=== PATIENT | male | born 1945 | race Caucasian/White ===

== ENCOUNTER 2022-09-28 11:40 | Observation (INO) | payer MEDICARE, OTHER ==
[~2022-09-28] VITALS: Ht 180.3 cm; Wt 82.0 kg
[2022-09-28] VITALS (14 sets, daily range): BP systolic 138–165; BP diastolic 63–77
--- NOTE | 2022-09-28 11:40 | NUR ---
PATIENT BROUGHT TO ROOM VIA EMS STRETCHER AND IN NAD. PROVIDER NOTIFIED OF PATIENT STATUS.
[2022-09-28 12:07] LABS: BASO% 0.7 % (0-3); EOS% 1.3 % (0-8); HEMOGLOBIN 13.1 g/dl (14.0-18.0); IMMATURE GRANULOCYTES 0.3 % (0.0-5.0); LYMPH% 11.3 % (15-41); MEAN CELL VOLUME 101.3 fL CALC (80.0-100.0); MEAN CORPUSCULAR HGB 33.2 pG CALC (26.0-32.0); MEAN CORPUSCULAR HGB CONC 32.8 g/dL CAL (32.0-36.0); MONO% 7.6 % (2-13); NEUT# 5.46 thou/uL (1.82-7.42); NEUT% 78.8 % (42-76); RED BLOOD COUNT 3.95 mill/uL (4.70-6.10)
[2022-09-28 12:19] LABS: ALBUMIN 3.9 g/dL (3.2-5.0); ALKALINE PHOSPHATASE 35 u/l (38-126); ANION GAP 8 (6-22 (CALC)); BILIRUBIN, TOTAL 0.5 mg/dL (0.2-1.3); BUN 16 mg/dL (8-23); BUN/CREATININE RATIO 19 (12-20 (CALC)); CARBON DIOXIDE 23 mmol/l (22-30); CHLORIDE 107 mmol/l (95-108); CREATININE 0.9 mg/dL (0.7-1.3); GFR FOR AFR.AMER. > 60 ML/MIN (>=60 (CALC)); GFR OTHER RACES > 60 ML/MIN (>=60 (CALC)); POTASSIUM 3.6 mmol/l (3.5-5.1); SGOT/AST 30 u/l (19-48); SODIUM 135 mmol/l (137-146); TOTAL PROTEIN 6.2 g/dL (6.3-8.2)
--- NOTE | 2022-09-28 12:30 | NUR ---
Reassessment of patient completed. No distress noted.
[2022-09-28 13:21] LABS: URINE BILIRUBIN - DIPSTICK NEGATIVE (NEGATIVE); URINE BLOOD DIPSTICK TRACE-INTACT (NEGATIVE); URINE COLOR YELLOW; URINE GLUCOSE - DIPSTICK NEGATIVE (NEGATIVE); URINE KETONE NEGATIVE (NEGATIVE); URINE LEUK ESTERASE NEGATIVE (NEGATIVE); URINE PROTEIN - DIPSTICK NEGATIVE (NEG-TRACE); URINE SPECIFIC GRAVITY 1.025; URINE UROBILINOGEN - DIPSTICK 0.2 E.U./dL (0.2)
[2022-09-28 13:22] LABS: URINE NITRITE - DIPSTICK NEGATIVE (Negative)
--- NOTE | 2022-09-28 13:30 | NUR ---
Reassessment of patient completed. No distress noted.
--- NOTE | 2022-09-28 14:23 | NUR ---
Reassessment of patient completed. No distress noted.
[2022-09-28] MEDS ORDERED: XARELTO10 MG PO (15:41)
[2022-09-28] MEDS ORDERED: LISINOPRIL2.5 MG PO (15:41)
[2022-09-28] MEDS ORDERED: VITAMIN B6100 MG PO (15:42)
[2022-09-28] MEDS ORDERED: B-2100 MG PO (15:42)
[2022-09-28] MEDS ORDERED: ACYCLOVIR400 MG PO (15:42)
[2022-09-28] MEDS ORDERED: L-LYSINE500 MG PO (15:43)
[2022-09-28] MEDS ORDERED: POTASSIUM CITR15 MEQ PO (15:44)
[2022-09-28] MEDS ORDERED: FIORICET PO (15:45)
--- NOTE | 2022-09-28 15:46 | NUR ---
Reassessment of patient completed. No distress noted.
--- NOTE | 2022-09-28 16:46 | NUR ---
Reassessment of patient completed. No distress noted.
--- NOTE | 2022-09-28 16:59 | NUR ---
REPORT CALLED TO CYNTHIA SCHULTE ON MED SURGE ACCEPTING PATIENT. VERBALIZED UNDERSTANDING. TELE AND STRETCHER TO TRANSPORT PATIENT WITH SIGNIFICANT OTHER AT BEDSIDE.
--- NOTE | 2022-09-28 17:10 | NUR ---
pt arrived to [facility] via stretcher accompanied by ER staff x2 in stable condition; spouse present at bedside; settled in bed
--- NOTE | 2022-09-28 17:45 | NUR ---
pt awake in bed; offers no complaints; admission assessment completed at this time; c/c of near fainting episode twice while out antique shopping with spouse; pt alert and oriented; denies pain; resp even and unlabored; lungs clear; hr reg; tele monitor intact; abd soft with bs present; pt admits to voiding without complication; #18 ems site saline locked to ; plan of care/ meds explained; call light within reach; will continue to monitor
--- NOTE | 2022-09-28 17:56 | NUR ---
Reassessment of patient completed. No distress noted.
--- NOTE | 2022-09-28 19:26 | NUR ---
troponin result of 1.[address] Farr; staff to continue to monitor pt with possible transfer in am pending next trops
--- NOTE | 2022-09-28 20:25 | NUR ---
PT IN BED AWAKE WATCHING TV DENIES PAIN OR DISCOMFORT. BREATHING EVEN AND UNLABORED NO S/S OF DISTRESS NOTED. ASSESMENT COMPLETED. AT BEDSIDE. CALL LIGHT IN REACH AND BE DIN LOWEST POSITION.
[2022-09-29 00:03] VITALS: BP 157/70
--- NOTE | 2022-09-29 00:10 | NUR ---
PT IN BED RESTING WITH EYES CLSOED BREATHING EVEN AND UNLABORED. NO S/S OF DISTRESS NOTED CALL LIGHT IN REAHC AND BED IN LOWEST POSITION. AT BEDSIDE.
--- NOTE | 2022-09-29 04:00 | NUR ---
PT IN BED RESTING WITH EYES CLOSED BREATHING EVEN AND UNLABORED. NO S/S OF DISTRESS NOTED. CALL LIGHT IN REACH AND BED IN LOWEST POSITION. CALL LIGHT IN REACH. AT BEDSIDE.
[2022-09-29 04:05] VITALS: BP 153/71
[2022-09-29 04:55] LABS: BASO% 0.8 % (0-3); EOS% 3.1 % (0-8); HEMATOCRIT 38.8 % (39.0-50.0); HEMOGLOBIN 13.3 g/dl (14.0-18.0); IMMATURE GRANULOCYTES 0.4 % (0.0-5.0); MEAN CELL VOLUME 100.3 fL CALC (80.0-100.0); MEAN CORPUSCULAR HGB 34.4 pG CALC (26.0-32.0); MEAN CORPUSCULAR HGB CONC 34.3 g/dL CAL (32.0-36.0); NEUT# 2.83 thou/uL (1.82-7.42); NEUT% 58.7 % (42-76); RED BLOOD COUNT 3.87 mill/uL (4.70-6.10); RED CELL DISTRI WIDTH 12.8 % (11.5-15.5)
[2022-09-29 04:58] LABS: ALBUMIN 3.4 g/dL (3.2-5.0); ALKALINE PHOSPHATASE 33 u/l (38-126); ANION GAP 8 (6-22 (CALC)); BILIRUBIN, TOTAL 0.5 mg/dL (0.2-1.3); BUN 13 mg/dL (8-23); BUN/CREATININE RATIO 18 (12-20 (CALC)); CARBON DIOXIDE 22 mmol/l (22-30); CHLORIDE 113 mmol/l (95-108); CREATININE 0.7 mg/dL (0.7-1.3); GFR FOR AFR.AMER. > 60 ML/MIN (>=60 (CALC)); GFR OTHER RACES > 60 ML/MIN (>=60 (CALC)); POTASSIUM 3.6 mmol/l (3.5-5.1); SGOT/AST 26 u/l (19-48); SODIUM 140 mmol/l (137-146); TOTAL PROTEIN 5.6 g/dL (6.3-8.2)
--- NOTE | 2022-09-29 07:16 | NUR ---
REPORT FROM KAREN LORD. ASSUMED PT CARE.
[2022-09-29 08:40] VITALS: BP 150/69
--- NOTE | 2022-09-29 09:52 | NUR ---
DR. CHURCH AT BEDSIDE.
--- NOTE | 2022-09-29 10:35 | NUR ---
IV site discontinued, cath intact. No edema , no redness, voices no discomfort.
--- NOTE | 2022-09-29 10:36 | NUR ---
PT SIGNED RELEASE OF MEDICAL RECORD TO BE SENT TO PRIMARY CARE PHYSICIAN, WILL SEND TO MEDICAL RECORDS.
--- NOTE | 2022-09-29 10:40 | NUR ---
Discharge instructions given. Patient verbalizes understanding of same. Discharged in stable condition via Wheelchair to Home with family. All belongings sent with pt.
== END 2022-09-29 10:40 | disposition home or self-care (01) ==
LOC: ED 11:40 → ED-I 15:55 → ED 16:31 → MS2 16:32
PROVIDERS: Emergency Medicine; ADMIT Internal Medicine; ATTEND Internal Medicine
DX: R55 Syncope and collapse (principal); I10 Essential (primary) hypertension; Z86.73 Personal history of transient ischemic attack (TIA), and cerebral infarction without residual deficits; Z85.46 Personal history of malignant neoplasm of prostate